=== PATIENT | male | born 1995 | race Caucasian/White ===

== ENCOUNTER 2024-01-06 15:02 | Inpatient (IN) | payer OTHER ==
[2024-01-06 17:13] LABS: BASO % 0.1 % (0-2.0); EOS % 0.6 % (0-4.5); HEMATOCRIT 43.9 % (35.4-49); MCH 30.1 pg (25.7-33.7); MCHC 34.1 g/dl (32.0-35.9); MEAN CELL VOLUME 88.2 fl (80-96); MEAN PLT VOLUME 9.5 fl (7.5-11.1); MONO % 5.9 % (3.8-10.2); NEUT % 87.4 % (42.8-82.8); PLATELET COUNT 217 10^3/uL (134-434); RBC 4.98 M/mm3 (4.00-5.60); RDW 13.5 % (11.9-15.9); WHITE BLOOD COUNT 9.9 K/mm3 (4.0-10.0)
[2024-01-06 17:20] LABS: INR 1.08 (0.83-1.09); PROTHROMBIN TIME (PATIENT) 12.5 SEC (9.7-13.0)
[2024-01-06 17:23] LABS: ACTIVATED PTT 27.9 SECONDS (25.2-36.5)
[2024-01-06 17:36] LABS: CALCIUM 8.4 mg/dL (8.5-10.1)
[2024-01-06 17:37] LABS: ALBUMIN 3.8 g/dl (3.4-5.0); BLOOD UREA NITROGEN 16.6 mg/dL (7-18)
[2024-01-06 17:40] LABS: CREATININE 0.9 mg/dL (0.55-1.3)
[2024-01-06 17:41] LABS: TOT PROT 7.6 g/dl (6.4-8.2)
[2024-01-06] MEDS ORDERED: ONDANSETRON 4 MG/2 ML VIAL ONE (18:02)
[2024-01-06] MEDS ORDERED: FAMOTIDINE 20 MG/50 ML IVPB 20 MG/50 ML MG IVPB ONE (18:03)
[2024-01-06] MEDS: FAMOTIDINE 20 MG/50 ML IVPB 20 MG/50 ML MG IVPB ONE (18:19)
[2024-01-06] MEDS: ONDANSETRON 4 MG/2 ML VIAL IVPUSH ONE (18:19)
[2024-01-06] MEDS: LACTATED RINGERS SOLUTION 1000 ML INFUS.BAG IV ONE (18:19)
[2024-01-06] MEDS: PANTOPRAZOLE SODIUM 40 MG VIAL IVPUSH ONE (18:54)
[2024-01-06] MEDS ORDERED: CEFTRIAXONE 1 GM/50 ML BAG ONE (18:57)
[2024-01-06] MEDS: CEFTRIAXONE 1,000 MG in DEXTROSE 5%-WATER - 50 ML IVPB ONE (19:00)
[2024-01-07 00:49] VITALS: BMI 26.7
[2024-01-07] MEDS ORDERED: ONDANSETRON 4 MG/2 ML VIAL IVPUSH PRN (01:03)
[2024-01-07] MEDS: SODIUM CHLORIDE 1,000 ML IV SCH (05:41)
[2024-01-07 09:14] LABS: BASO % 0.3 % (0-2.0); EOS % 2.9 % (0-4.5); HEMATOCRIT 40.4 % (35.4-49); HEMOGLOBIN 13.5 GM/dL (11.7-16.9); LYMPH % 22.9 % (8-40); MCH 29.6 pg (25.7-33.7); MCHC 33.5 g/dl (32.0-35.9); MEAN CELL VOLUME 88.5 fl (80-96); MEAN PLT VOLUME 9.6 fl (7.5-11.1); MONO % 11.1 % (3.8-10.2); NEUT % 62.8 % (42.8-82.8); PLATELET COUNT 192 10^3/uL (134-434); RBC 4.56 M/mm3 (4.00-5.60); RDW 13.2 % (11.9-15.9); WHITE BLOOD COUNT 4.8 K/mm3 (4.0-10.0)
[2024-01-07 09:35] LABS: POTASSIUM 3.6 mmol/L (3.5-5.1)
[2024-01-07 09:37] LABS: ALBUMIN 3.1 g/dl (3.4-5.0); BLOOD UREA NITROGEN 10.9 mg/dL (7-18); CALCIUM 7.9 mg/dL (8.5-10.1)
[2024-01-07 09:40] LABS: CREATININE 0.8 mg/dL (0.55-1.3); MAGNESIUM 2.2 mg/dL (1.8-2.4)
[2024-01-07 09:41] LABS: PHOSPHOROUS 3.1 mg/dL (2.5-4.9)
[2024-01-07 09:42] LABS: BILIRUBIN,TOTAL 0.7 mg/dL (0.2-1); TOT PROT 6.3 g/dl (6.4-8.2)
[2024-01-07] MEDS: PANTOPRAZOLE SODIUM 40 MG VIAL IVPUSH SCH (10:54)
[2024-01-08] MEDS: PANTOPRAZOLE 40 MG TABLET PO SCH (09:56)
[2024-01-09] MEDS ORDERED: ACETAMINOPHEN 325 MG TABLET (FP) PO PRN (16:53)
[2024-01-10 07:54] LABS: BASO % 0.4 % (0-2.0); EOS % 2.4 % (0-4.5); HEMATOCRIT 44.3 % (35.4-49); HEMOGLOBIN 15.1 GM/dL (11.7-16.9); LYMPH % 22.2 % (8-40); MEAN CELL VOLUME 88.2 fl (80-96); MEAN PLT VOLUME 9.4 fl (7.5-11.1); MONO % 11.5 % (3.8-10.2); NEUT % 63.5 % (42.8-82.8); PLATELET COUNT 244 10^3/uL (134-434); RBC 5.02 M/mm3 (4.00-5.60); RDW 13.3 % (11.9-15.9); WHITE BLOOD COUNT 8.3 K/mm3 (4.0-10.0)
[2024-01-10 08:13] LABS: POTASSIUM 4.2 mmol/L (3.5-5.1)
[2024-01-10 08:18] LABS: CALCIUM 8.8 mg/dL (8.5-10.1)
[2024-01-10 08:19] LABS: ALBUMIN 3.5 g/dl (3.4-5.0); BLOOD UREA NITROGEN 15.8 mg/dL (7-18)
[2024-01-10 08:22] LABS: CREATININE 0.9 mg/dL (0.55-1.3)
[2024-01-10 08:23] LABS: BILIRUBIN,TOTAL 0.7 mg/dL (0.2-1); TOT PROT 7.1 g/dl (6.4-8.2)
[2024-01-10 15:43] VITALS: RESP 18
[2024-01-12 07:09] VITALS: TEMP 98.4
[2024-01-12 14:36] VITALS: BP 114/78; PULSE 75
== END 2024-01-12 18:29 | disposition home or self-care (01) | DRG 144 ==
LOC: JER 15:02 → JERBED 22:47 → J5S 01-07 00:37 → J8W 01-08 14:12
PROVIDERS: ADMIT Internal Medicine; ATTEND Nurse Practitioner Family
PROC: 0DJ08ZZ Inspection of Upper Intestinal Tract, Via Natural or Artificial Opening Endoscopic (ICD-10-PCS; principal; 2024-01-07 13:00)
DX: R04.2 Hemoptysis (principal); K92.0 Hematemesis; K44.9 Diaphragmatic hernia without obstruction or gangrene; F10.10 Alcohol abuse, uncomplicated; F17.210 Nicotine dependence, cigarettes, uncomplicated; K21.00 Gastro-esophageal reflux disease with esophagitis, without bleeding; R76.11 Nonspecific reaction to tuberculin skin test without active tuberculosis
CPT/HCPCS: 0241U-QW; 36415; 71046-TC-FY; 71250-TC; 80053; 83735; 84100; 85025; 85610; 85730; 86480; 86850; 86900; 86901; 87116; 87206; 93005; 93010; 99285-25